=== PATIENT | female | born 1970 | race Caucasian/White ===

== ENCOUNTER → 2021-01-14 | Outpatient (CLI) | payer OTHER | LOC: KOH-I 10:41 | DX: M25.571 Pain in right ankle and joints of right foot (principal) | CPT/HCPCS: 73610; 73630 ==

== ENCOUNTER → 2021-04-08 | Outpatient (CLI) | payer OTHER | LOC: KOH-I 09:50 | DX: M79.672 Pain in left foot (principal); M20.12 Hallux valgus (acquired), left foot | CPT/HCPCS: 73630 ==

== ENCOUNTER → 2021-05-07 | Day surgery (SDC) | payer OTHER ==
[~2021-05-07] VITALS: Ht 172.7 cm; Wt 72.1 kg
[~2021-05-07] MED LIST: ALEVE220 MG PO; CYCLOBENZAPRINE10 MG PO; LEVOTHYROXINE25 MC1 PO; LIDOCAINE-PRILOCAINE TOP; NEURONTIN100 MG PO; NEURONTIN400 MG PO; ONDANSETRON HCL4 MG PO; PROAIR HFA8.5 GM INH; PROTONIX40 MG PO; SINGULAIR10 MG PO
[2021-05-07 09:14] LABS: HEMOGLOBIN 15.2 gm/dl (12.3-15.3); RED BLOOD COUNT 4.56 M/UL (4.00-5.10); WHITE BLOOD COUNT 12.2 K/UL (4.5-11.0)
[2021-05-07 09:30] LABS: BUN/CREATININE RATIO 24 (0-10)
== END | disposition home or self-care (01) ==
LOC: OR 07:40
PROVIDERS: Podiatrist Foot & Ankle Surgery
DX: M20.12 Hallux valgus (acquired), left foot (principal); M89.9 Disorder of bone, unspecified; M72.2 Plantar fascial fibromatosis; L60.0 Ingrowing nail
CPT/HCPCS: 36415; 73630; 76000; 80048; 85027; 93005; J0690; J1100; J1170; J1885; J2250; J2405; J2550; J2704; J2795; J3010; J3370; J7040; J7120

== ENCOUNTER → 2021-05-19 | Outpatient (CLI) | payer OTHER | LOC: KOH-I 10:20 | DX: M79.672 Pain in left foot (principal); Z98.890 Other specified postprocedural states | CPT/HCPCS: 73630; 93971 ==

== ENCOUNTER → 2021-06-12 | Outpatient (CLI) | payer OTHER | LOC: KOH-I 10:04 | DX: M79.672 Pain in left foot (principal); Z98.890 Other specified postprocedural states | CPT/HCPCS: 73630 ==

== ENCOUNTER → 2021-06-23 | Outpatient (CLI) | payer OTHER | LOC: KOH-I 10:06 | DX: M79.672 Pain in left foot (principal) | CPT/HCPCS: 73630 ==

== ENCOUNTER → 2021-07-28 | Outpatient (CLI) | payer OTHER | LOC: KOH-I 10:48 | DX: M79.672 Pain in left foot (principal) | CPT/HCPCS: 73630 ==

== ENCOUNTER → 2021-08-18 | Outpatient (CLI) | payer OTHER | LOC: KOH-I 10:23 | DX: M79.672 Pain in left foot (principal) | CPT/HCPCS: 73630 ==

== ENCOUNTER → 2021-11-10 | Outpatient (CLI) | payer OTHER | LOC: KOH-I 10:46 | DX: M79.672 Pain in left foot (principal) | CPT/HCPCS: 73630 ==